=== PATIENT | female | born 1980 | race Caucasian/White ===

== ENCOUNTER → 2018-01-02 09:11 | Outpatient (CLI) | payer OTHER, SELFPAY ==
[2018-01-02 10:19] LABS: Anion Gap 7 (5-15); BUN 13 mg/dL (7-18); BUN/Creat Ratio 18.4 RATIO (10-20); Calcium,Total 8.7 mg/dL (8.5-10.1); Chloride 104 mmol/L (98-107); Cholesterol 206 mg/dL (200); Creatinine, Serum 0.71 mg/dL (0.55-1.02); EST Glomerular Filtration Rate 99 mL/min (>60); Est Glom Filt Rate - Afr Amer 120 mL/min (>60); Glucose 84 mg/dL (74-106); High Density Lipoprotein 49 mg/dL; Potassium 4.1 mmol/L (3.5-5.1); Sodium Level 136 mmol/L (136-145); Thyroid Stim Hormone (TSH) 1.63 uIU/mL (0.358-3.74); Triglycerides 184 mg/dL; Very Low Density Lipoprotein 37 mg/dL (5-40)
== END ==
PROVIDERS: Family Provider Family Medicine; PCP Family Medicine; Referring Provider Family Medicine; Visit Provider Family Medicine
DX: Z00.00 Encounter for general adult medical examination without abnormal findings (principal)
CPT/HCPCS: 36415; 80048; 80061; 82306; 84443

== ENCOUNTER → 2018-09-27 | Outpatient (CLI) | payer OTHER, SELFPAY ==
[2018-09-27 17:28] LABS: Absolute Lymphocyte Count 2.28 X10^3/uL (0.83-4.51); Absolute Neutrophil Count 3.9 X10^3/uL (2.0-7.7); Basophil# 0.04 X10^3/uL; Basophil% 0.6 % (0-1); Eosinophils% 1.4 % (0-5); Hematocrit 36.9 % (37-47); Hemoglobin 12.3 g/dL (12.0-15.0); Lymphocyte # 2.28 X10^3/ul (4.0); Lymphocyte % 32.2 % (19-41); Mean Corp Hgb Conc 33.3 g/dL (32-36); Mean Corpuscular Hgb 30.9 pg (27.0-32.0); Mean Corpuscular Volume 92.7 fL (81-99); Mean Platelet Vol. 10.5 fl (6.2-12.0); Monocyte# 0.78 X10^3/uL; NRBC Flagged by Analyzer 0 % (0-5); Neutrophil # 3.85 X10^3/uL (2.7-7.7); Neutrophil % 54.5 % (47-70); Platelet Count 272 K/mm3 (150-450); RBC Distribution Width CV 12.2 % (11.6-14.6); RBC Distribution Width SD 42.2 fl (35.1-43.9); Red Blood Count 3.98 M/mm3 (4.2-5.4); White Blood Count 7.1 K/mm3 (4.4-11.0)
[2018-09-27 17:51] LABS: Anion Gap 11 (5-15); BUN 10 mg/dL (7-18); BUN/Creat Ratio 16.1 RATIO (10-20); Calcium,Total 9.1 mg/dL (8.5-10.1); Chloride 105 mmol/L (98-107); Creatinine, Serum 0.62 mg/dL (0.55-1.02); EST Glomerular Filtration Rate 115 mL/min (>60); Est Glom Filt Rate - Afr Amer 140 mL/min (>60); Glucose 92 mg/dL (74-106); Sodium Level 141 mmol/L (136-145); Thyroid Stim Hormone (TSH) 1.63 uIU/mL (0.358-3.74)
== END | disposition home or self-care (01) ==
LOC: MFPLAB 15:46
PROVIDERS: Family Provider Family Medicine; PCP Family Medicine; Referring Provider Family Medicine; Visit Provider Family Medicine
DX: R53.83 Other fatigue (principal); E66.9 Obesity, unspecified
CPT/HCPCS: 36415; 80048; 84443; 85025

== ENCOUNTER → 2019-10-19 08:14 | Outpatient (CLI) | payer OTHER, SELFPAY ==
[2019-03-15 14:58] VITALS: BMI 24.2
--- NOTE | 2019-10-19 08:17 | BI_ITS ---
MAMMOGRAPHY - BILATERAL SCREENING 3-D TOMOSYNTHESIS REASON FOR EXAM: Female, 39 years old. Annual screening mammogram. PERTINENT HISTORY: Family history of breast cancer in mother. TECHNIQUE: 2-D mammograms and 3-D Tomosynthesis of the breast (s) were performed. CAD was performed. COMPARISON: Report of mammograms from 04/09/2016. Films not submitted for comparison. FINDINGS: The breast composition is almost entirely fat. Scattered benign calcifications are seen. No dense spiculated masses or suspicious microcalcifications are identified. No architectural distortion is identified. There is no skin thickening or retraction. There has been no significant change since the prior study. BI/SCREEN MAMM (CAD) W/RUPA BILAT IMPRESSION: No mammographic signs of malignancy. Routine yearly mammograms recommended. ASSESSMENT CATEGORY: BIRADS Category 1: Negative. A letter regarding these results will be sent to the patient by the facility within 30 days. FOLLOW UP RECOMMENDATION: Yearly follow up mammogram recommended. (A) Approximately 10% of breast cancers are not detected by mammography. A normal mammogram should not delay biopsy of a clinically suspicious abnormality. Electronically Signed: Raj Souza MD at 15:45 EDT , Service support ,
== END ==
PROVIDERS: PCP Family Medicine; Referring Provider Nurse Practitioner Family; Visit Provider Nurse Practitioner Family
DX: Z12.31 Encounter for screening mammogram for malignant neoplasm of breast (principal)
CPT/HCPCS: 77063; 77067

== ENCOUNTER → 2019-12-31 09:10 | Outpatient (CLI) | payer OTHER, SELFPAY ==
[2019-03-15 14:58] VITALS: BMI 24.2
[2019-12-31 10:55] LABS: Anion Gap 8 (5-15); BUN 11 mg/dL (7-18); Chloride 109 mmol/L (98-107); Cholesterol 207 mg/dL (200); Creatinine, Serum 0.78 mg/dL (0.55-1.02); EST Glomerular Filtration Rate 87 mL/min (>60); Est Glom Filt Rate - Afr Amer 106 mL/min (>60); Glucose 81 mg/dL (74-106); High Density Lipoprotein 48 mg/dL; Sodium Level 138 mmol/L (136-145); Thyroid Stim Hormone (TSH) 1.42 uIU/mL (0.358-3.74); Triglycerides 215 mg/dL; Very Low Density Lipoprotein 43 mg/dL (5-40)
[2020-01-02 08:22] LABS: Vitamin D,25 Hydroxy 37.3 ng/mL
== END ==
PROVIDERS: PCP Family Medicine; Referring Provider Family Medicine; Visit Provider Family Medicine
DX: E78.5 Hyperlipidemia, unspecified (principal); E55.9 Vitamin D deficiency, unspecified; F43.21 Adjustment disorder with depressed mood
CPT/HCPCS: 36415; 80048; 80061; 82306; 84443

== ENCOUNTER 2020-02-29 14:39 | Outpatient (RCR) | payer OTHER, SELFPAY ==
[2019-03-15 14:58] VITALS: BMI 24.2
== END 2020-03-01 23:59 ==
LOC: EMPH 14:39
PROVIDERS: Visit Provider Family Medicine Geriatric Medicine
DX: Z03.818 Encounter for observation for suspected exposure to other biological agents ruled out (principal)
CPT/HCPCS: 87426

== ENCOUNTER → 2020-04-20 08:56 | Outpatient (CLI) | payer OTHER, SELFPAY ==
[2019-03-15 14:58] VITALS: BMI 24.2
[2020-04-20 10:25] LABS: ALB/GLOB Ratio 0.8 RATIO (0.9-2.4); AST(SGOT) 67 U/L (15-37); Alanine Aminotransfer ALT/SGPT 80 U/L (13-56); Albumin, Serum 3.3 g/dL (3.2-5.0); Alkaline Phosphatase 84 U/L (45-117); Anion Gap 5 (5-15); BUN 9 mg/dL (7-18); BUN/Creat Ratio 13.7 RATIO (10-20); Calcium,Total 8.9 mg/dL (8.5-10.1); Chloride 107 mmol/L (98-107); Cholesterol 230 mg/dL (200); Creatinine, Serum 0.66 mg/dL (0.55-1.02); EST Glomerular Filtration Rate 107 mL/min (>60); Est Glom Filt Rate - Afr Amer 129 mL/min (>60); Globulin 4.4 g/dL (2.2-4.2); Glucose 86 mg/dL (74-106); High Density Lipoprotein 47 mg/dL; Potassium 3.8 mmol/L (3.5-5.1); Protein, Total 7.7 g/dL (6.4-8.2); Sodium Level 139 mmol/L (136-145); Triglycerides 227 mg/dL; Very Low Density Lipoprotein 45 mg/dL (5-40)
== END ==
PROVIDERS: PCP Family Medicine; Referring Provider Family Medicine; Visit Provider Family Medicine
DX: E78.5 Hyperlipidemia, unspecified (principal)
CPT/HCPCS: 36415; 80053; 80061

== ENCOUNTER 2020-06-21 15:09 | Outpatient (RCR) | payer OTHER, SELFPAY ==
[2019-03-15 14:58] VITALS: BMI 24.2
== END 2020-06-29 23:59 ==
LOC: EMPH 15:09
PROVIDERS: Referring Provider Family Medicine Geriatric Medicine; Visit Provider Family Medicine Geriatric Medicine
DX: Z03.818 Encounter for observation for suspected exposure to other biological agents ruled out (principal)
CPT/HCPCS: 87426

== ENCOUNTER → 2020-10-19 09:12 | Outpatient (CLI) | payer OTHER, SELFPAY ==
[2020-10-19 12:23] LABS: ALB/GLOB Ratio 0.8 RATIO (0.9-2.4); AST(SGOT) 213 U/L (15-37); Alanine Aminotransfer ALT/SGPT 123 U/L (13-56); Albumin, Serum 3.5 g/dL (3.2-5.0); Alkaline Phosphatase 84 U/L (45-117); Anion Gap 9 (5-15); BUN 13 mg/dL (7-18); BUN/Creat Ratio 20.9 RATIO (10-20); Calcium,Total 9.3 mg/dL (8.5-10.1); Chloride 105 mmol/L (98-107); Cholesterol 223 mg/dL (200); Creatinine, Serum 0.62 mg/dL (0.55-1.02); EST Glomerular Filtration Rate 114 mL/min (>60); Est Glom Filt Rate - Afr Amer 138 mL/min (>60); Globulin 4.4 g/dL (2.2-4.2); Glucose 95 mg/dL (74-106); High Density Lipoprotein 50 mg/dL; Potassium 3.9 mmol/L (3.5-5.1); Protein, Total 7.9 g/dL (6.4-8.2); Sodium Level 137 mmol/L (136-145); Triglycerides 193 mg/dL; Very Low Density Lipoprotein 39 mg/dL (5-40)
== END ==
PROVIDERS: PCP Family Medicine; Referring Provider Family Medicine; Visit Provider Family Medicine
DX: E78.5 Hyperlipidemia, unspecified (principal)
CPT/HCPCS: 36415; 80053; 80061

== ENCOUNTER 2020-10-25 11:56 | Outpatient (RCR) | payer OTHER, SELFPAY ==
[2019-03-15 14:58] VITALS: BMI 24.2
== END 2020-10-30 23:59 ==
LOC: EMPH 11:56
PROVIDERS: PCP Family Medicine; Referring Provider Family Medicine Geriatric Medicine; Visit Provider Family Medicine Geriatric Medicine
DX: Z03.818 Encounter for observation for suspected exposure to other biological agents ruled out (principal)
CPT/HCPCS: 87426

== ENCOUNTER → 2020-11-19 11:02 | Outpatient (CLI) | payer OTHER, SELFPAY ==
[2020-11-19 12:35] LABS: ALB/GLOB Ratio 0.8 RATIO (0.9-2.4); AST(SGOT) 92 U/L (15-37); Alanine Aminotransfer ALT/SGPT 89 U/L (13-56); Albumin, Serum 3.2 g/dL (3.2-5.0); Alkaline Phosphatase 82 U/L (45-117); Anion Gap 8 (5-15); BUN 13 mg/dL (7-18); Chloride 104 mmol/L (98-107); Creatinine, Serum 0.59 mg/dL (0.55-1.02); EST Glomerular Filtration Rate 121 mL/min (>60); Est Glom Filt Rate - Afr Amer 146 mL/min (>60); GGTP 120 U/L (5-55); Globulin 4.1 g/dL (2.2-4.2); Glucose 146 mg/dL (74-106); Potassium 3.5 mmol/L (3.5-5.1); Protein, Total 7.3 g/dL (6.4-8.2); Sodium Level 138 mmol/L (136-145)
[2020-11-20 08:34] LABS: Hepatitis B Surface Antibody Reactive
[2020-11-21 08:08] LABS: HEPATITIS B SURFACE AG Negative (Negative); Hepatitis A IgM Antibody Negative (Negative); Hepatitis B Core AB IgM Negative (Negative)
[2020-11-21 08:48] LABS: Hep C Antibodies <0.1 s/co ratio (0.0-0.9)
== END ==
PROVIDERS: PCP Family Medicine; Referring Provider Family Medicine; Visit Provider Family Medicine
DX: R74.8 Abnormal levels of other serum enzymes (principal)
CPT/HCPCS: 36415; 80053; 80074; 82977; 86706

== ENCOUNTER → 2020-12-21 08:31 | Outpatient (CLI) | payer OTHER, SELFPAY ==
[2020-12-21 10:46] LABS: ALB/GLOB Ratio 0.8 RATIO (0.9-2.4); AST(SGOT) 102 U/L (15-37); Alanine Aminotransfer ALT/SGPT 100 U/L (13-56); Albumin, Serum 3.4 g/dL (3.2-5.0); Alkaline Phosphatase 86 U/L (45-117); Anion Gap 9 (5-15); BUN 13 mg/dL (7-18); BUN/Creat Ratio 17.9 RATIO (10-20); Calcium,Total 9.3 mg/dL (8.5-10.1); Chloride 106 mmol/L (98-107); Cholesterol 215 mg/dL (200); Creatinine, Serum 0.73 mg/dL (0.55-1.02); EST Glomerular Filtration Rate 95 mL/min (>60); Est Glom Filt Rate - Afr Amer 115 mL/min (>60); GGTP 123 U/L (5-55); Globulin 4.4 g/dL (2.2-4.2); Glucose 102 mg/dL (74-106); High Density Lipoprotein 46 mg/dL; Protein, Total 7.8 g/dL (6.4-8.2); Sodium Level 138 mmol/L (136-145); Triglycerides 212 mg/dL; Very Low Density Lipoprotein 42 mg/dL (5-40)
== END ==
PROVIDERS: PCP Family Medicine; Referring Provider Family Medicine; Visit Provider Family Medicine
DX: E78.5 Hyperlipidemia, unspecified (principal)
CPT/HCPCS: 36415; 80053; 80061; 82977

== ENCOUNTER → 2020-12-31 09:16 | Outpatient (CLI) | payer OTHER, SELFPAY ==
[2020-12-31 10:21] LABS: Erythrocyte Sedimentation Rate 31 mm/hr (0-30)
[2020-12-31 10:58] LABS: CPK Total, Creatine Kinase 65 U/L (26-192); Ferritin 91 ng/mL (8-252)
[2021-01-03 00:07] LABS: Albumin 3.2 g/dL (2.9-4.4); Alpha-1-Globulins 0.4 g/dL (0.0-0.4); Angiotensin Convert Enzyme 23 U/L (14-82); Ceruloplasmin 49.5 mg/dL (19.0-39.0); Gamma Globulin 0.9 g/dL (0.4-1.8); Immunoglobulin A 93 mg/dL (87-352); Immunoglobulin G 896 mg/dL (586-1602); Immunoglobulin M 103 mg/dL (26-217); PROEL- TOTAL PROTEIN 6.9 g/dL (6.0-8.5)
[2021-01-03 15:47] LABS: Anti-Smooth Muscle ABS 4 Units (0-19); EBV Acute VCA IgM < 36.0 U/mL (0.0-35.9); EBV Nuclear Antigen IgG < 18.0 U/mL (0.0-17.9); EBV-VCA IgG 43.7 U/mL (0.0-17.9)
[2021-01-03 15:48] LABS: Copper, Serum or Plasma 214 ug/dL (80-158)
== END ==
PROVIDERS: PCP Family Medicine; Referring Provider Internal Medicine Gastroenterology; Visit Provider Internal Medicine Gastroenterology
DX: K75.9 Inflammatory liver disease, unspecified (principal)
CPT/HCPCS: 36415; 82164; 82390; 82525; 82550; 82728; 82784; 83516; 84165; 85652; 86038; 86141; 86334; 86664; 86665

== ENCOUNTER → 2021-01-03 07:51 | Outpatient (CLI) | payer OTHER, SELFPAY ==
--- NOTE | 2021-01-03 07:53 | US_ITS ---
STUDY: ABDOMINAL ULTRASOUND - RIGHT UPPER QUADRANT REASON FOR VISIT: Female, 40 years old Elevated Liver enzymes TECHNIQUE: Ultrasound evaluation of the right upper quadrant was performed with real-time and static hernández-scale imaging. TECHNICAL QUALITY: Adequate. COMPARISON: None. FINDINGS: Liver: The liver is enlarged and measures 23 cm. There is increased echogenicity consistent with fatty infiltration. The bile ducts are within normal limits. There is hepatic color flow. The direction of portal flow is hepatopetal. There is no demonstrated mass lesion. Gallbladder: Normal distended gallbladder. The gallbladder wall measures 1.8 mm. There is a negative sonographic White''s sign. There is no pericholecystic fluid. There are no gallstones. I suspect a 6 mm x 5 mm x 7 mm gallbladder polyp. Common Bile Duct (C.B.D.): The common bile duct measures 2.9 mm. Pancreas: Normal size of the head, body and tail of the pancreas. There is normal echogenicity of the pancreas. There is no demonstrated pancreatic mass or cyst. Right Kidney: Normal size of the right kidney. The right kidney measures 12.6 cm x 5.8 cm x 4.6 cm. Normal renal cortex. The right cortex measures 1.3 cm. There is no demonstrated renal mass or cyst. There is no right hydronephrosis. US/Abdomen Limited IMPRESSION: There is a 6 mm x 5 mm x 7 mm gallbladder polyp. Hepatomegaly and diffuse fatty infiltration of the liver. Electronically Signed: Jovan aWlls MD at 10:49 EDT , Service support ,
== END ==
PROVIDERS: PCP Family Medicine; Referring Provider Family Medicine; Visit Provider Family Medicine
DX: R74.8 Abnormal levels of other serum enzymes (principal)
CPT/HCPCS: 76705

== ENCOUNTER → 2021-01-09 10:33 | Outpatient (CLI) | payer OTHER, SELFPAY ==
--- NOTE | 2021-01-09 10:36 | BI_ITS ---
MAMMOGRAPHY - BILATERAL SCREENING REASON FOR EXAM: Female, 41 years old. Routine annual screening examination. PERTINENT HISTORY: Mother with breast cancer. TECHNIQUE: Digital bilateral breast rupa (3D mammographic acquisition) in the CC and MLO projections. 2-D mediolateral oblique (MLO) and craniocaudad (CC) views of both breasts were obtained. CAD: Full Field Digital Mammography with Computer Added Detection was performed. COMPARISON: Comparison is made with prior study dated 10/19/2019 and 04/09/2016. FINDINGS: Breast Composition: There are scattered areas of fibroglandular density. There are no dominant masses or suspicious calcifications. No other significant abnormalities are identified. There has been no significant change since the prior study. BI/SCRN MAMM (CAD)W/RUPA BILAT IMPRESSION: Stable bilateral screening mammogram. Yearly follow-up mammogram recommended. (A) ASSESSMENT CATEGORY: BIRADS Category 1: Negative. A letter regarding these results will be sent to the patient by the facility within 30 days. Approximately 10% of breast cancers are not detected by mammography. A normal mammogram should not delay biopsy of a clinically suspicious abnormality. [id number] Electronically Signed: Jovan Walls MD at 12:22 EST , Service support ,
== END ==
PROVIDERS: PCP Family Medicine; Referring Provider Nurse Practitioner Family; Visit Provider Nurse Practitioner Family
DX: Z12.31 Encounter for screening mammogram for malignant neoplasm of breast (principal)
CPT/HCPCS: 77063; 77067

== ENCOUNTER → 2021-01-11 11:05 | Outpatient (CLI) | payer OTHER, SELFPAY ==
[2021-01-11 13:03] LABS: Hemoglobin A1c 6.3 % (3.8-5.6)
== END ==
PROVIDERS: PCP Family Medicine; Referring Provider Internal Medicine Gastroenterology; Visit Provider Internal Medicine Gastroenterology
DX: K75.9 Inflammatory liver disease, unspecified (principal)
CPT/HCPCS: 36415; 83036

== ENCOUNTER → 2021-01-31 12:09 | Outpatient (CLI) | payer OTHER, SELFPAY ==
--- NOTE | 2021-01-31 12:10 | MRI_ITS ---
EXAM: MR ABDOMEN WITHOUT INTRAVENOUS CONTRAST, MRCP PROTOCOL : 1980 CLINICAL INDICATION: hepatitis TECHNIQUE: Multiplanar and multisequence MR images of the abdomen without intravenous contrast obtained with MRCP sequence. Three-dimensional post-processing reconstructions were performed. This report was created using [employer]ones report generation technology. COMPARISON: None. FINDINGS: LOWER THORAX: Unremarkable. No pleural effusion. LIVER: There was enlarged measuring 23.5 cm in cephalocaudad dimension. No space-occupying lesions within the liver. GALLBLADDER AND BILE DUCTS: Unremarkable. No gallstones. No gallbladder distention or wall edema. No intra- or extrahepatic biliary ductal dilation. No choledochal filling defect. PANCREAS: Unremarkable. No focal cystic mass. No pancreatic duct dilation. SPLEEN: Unremarkable. Non-enlarged. ADRENALS: Unremarkable. No nodules. KIDNEYS AND URETERS: Unremarkable. Normal renal size and position. No hydronephrosis. INTRAPERITONEAL SPACE: Unremarkable. No ascites or other fluid collection. VASCULATURE: Unremarkable. Abdominal aorta is non-dilated. LYMPH NODES: No enlarged lymph nodes. MRI/MRCP Abdomen without Contrast IMPRESSION: 1. Hepatomegaly. 2. Normal biliary tree. at 0940 Reported and signed by: Isaiah Quinteros MD Electronically Signed: Isaiah Quinteros MD at 9:39 EST Tel , Service support ,
== END ==
PROVIDERS: PCP Family Medicine; Visit Provider Internal Medicine Gastroenterology
DX: K75.9 Inflammatory liver disease, unspecified (principal)
CPT/HCPCS: 74181

== ENCOUNTER → 2021-02-15 09:51 | Outpatient (CLI) | payer OTHER, SELFPAY ==
--- NOTE | 2021-02-15 09:56 | US_ITS ---
STUDY: ABDOMINAL ULTRASOUND - ELASTOGRAPHY REASON FOR VISIT: Female, 41 years old. COLEMAN. TECHNIQUE: Liver stiffness measurements were obtained on a [employer] RS 85 ultrasound machine using a CA 1-7 probe following the SRU guidelines. 3 measurements were obtained using a 2-D-SWE method. The IQR/M was 19% suggesting a quality data set. TECHNICAL QUALITY: Adequate. COMPARISON: Comparison is made with prior examination dated 01/03/2021. FINDINGS: Liver: Hepatomegaly and fatty infiltration of the liver. Median liver stiffness measured 12 kPa. US/Elastography Parenchyma/Organ IMPRESSION: Liver stiffness measures 12 kPa compatible with F3. Metavir score. Electronically Signed: Jovan Walls MD at 10:36 EST , Service support ,
== END ==
PROVIDERS: PCP Family Medicine; Referring Provider Internal Medicine Gastroenterology; Visit Provider Internal Medicine Gastroenterology
DX: K75.81 Nonalcoholic steatohepatitis (NASH) (principal); K75.9 Inflammatory liver disease, unspecified
CPT/HCPCS: 76981

== ENCOUNTER 2021-02-24 08:07 | Outpatient (RCR) | payer OTHER, SELFPAY | END 2021-03-01 23:59 | LOC: EMPH 08:07 | PROVIDERS: PCP Family Medicine | DX: Z03.818 Encounter for observation for suspected exposure to other biological agents ruled out (principal) | CPT/HCPCS: 87426 ==

== ENCOUNTER 2021-04-03 08:51 | Outpatient (CLI) | payer OTHER, SELFPAY ==
[2021-04-03] VITALS (12 sets, daily range): BP systolic 106–139; BP diastolic 70–92; PULSE 67–81; RESP 12–22; TEMP 36.6; O2SAT 75–100; BMI 33.7
--- NOTE | 2021-04-03 | ASPIGT_PTH ---
PATIENT: ROSALINE FRANCIS LOC: CT U#:[id number] AGE/SX: 41/F ROOM: RE04/03/[address]: Dr. Flavio Mcintosh DO : 1980 BED: DIS: 04/03/2021 SPEC #: [id number] RECD: 04/03/21 12:19 STATUS: ALEXSANDER SHAHID #: [id number] RICK: 04/03/21 00:[address]: Flavio Mcintosh DEPT: SURGICAL PATHOLOGY RECD BY: Bill Guzman ENTERED: 04/03/21 12:29 SP TYPE: ASP RAD YESSENIA DR: Dr. Nate Joshi MD Tissues: Liver, NOS Procedures: PAS with Diastase (control) Trichrome (control) Special Stain Group II PAS Stain (control) Surgery Specimen Level V Retic (control) Iron Stain (control) HEADER OPERATION: CT-guided liver biopsy PRE-OP DIAGNOSIS: COLEMAN TISSUE SUBMITTED: Liver 18-gauge x3 MICROSCOPIC DIAGNOSIS Liver, CT-guided core biopsy: Microvesicular and macrovesicular steatohepatitis. See comment. AM:ion 04/04/2021 COMMENT Sections show microvesicular steatosis with macrovesicular steatosis. The inflammatory process is mostly confined to portal areas with focal lobular involvement but shows involvement of interportal parenchyma. PAS stain with and without diastase does not reveal accumulation of abnormal proteins. Iron stain does not reveal deposition of intraparenchymal iron. Reticulin stain reveals a normal hepatic architecture. Trichrome stain reveals uptake in the portal areas with chicken-wire fibrosis within the hepatic parenchyma. All matched controls are appropriate. The inflammation and fibrosis best fits under grade 2, stage 1 (modified Knodell score) consistent for chronic hepatitis. Clinical correlation is suggested. MICROSCOPIC DESCRIPTION Slides are reviewed. GROSS DESCRIPTION Received in fixative is one container labeled with the patient's name and designated liver. The specimen consists of two elongated cores of mcdaniels tissue measuring 2 cm in length and <0.1 cm in diameter. The specimen is totally submitted in one cassette. / AM:ion 04/03/2021 TC:3 CPT: 97626, 97394 x5
--- NOTE | 2021-04-03 09:03 | CT_ITS ---
PROCEDURE: CT DIRECTED CORE LIVER BIOPSY INDICATION: Female, 41 years old. COLEMAN. PHYSICIAN: Dr. JAMEL Jernigan CONSENT: Written informed consent was obtained having explained the risks, benefits and alternatives in detail with the patient who accepted the risks and agreed to proceed. Laboratory review and clinical assessment was performed. CONSCIOUS SEDATION PROTOCOL: The Drugs used were: 2 mg Versed, IV., and 100 mcg Fentanyl, IV. The sedation time was: 20 minutes. Conscious sedation was started at 9:55 AM and terminated at 10:15 AM. The conscious sedation protocol was independently monitored. RADIATION DOSAGE (If Supplied By Facility): CTDIvol = ( 21 ) mGy, DLP = ( 546.66 ) mGycm Individualized dose optimization techniques were used for this CT. TECHNIQUE: Using CT image guidance with image documentation, a suitable location in the right lobe of the liver was identified. Using an anterior approach, puncture of the liver was uneventful with an 18-gauge core needle system. Three 18-gauge core samples were obtained, and submitted in formalin to the pathologist for further assessment. Followup CT scan revealed no distinct sequelae. CT/Biopsy/Inj or Needle Placement IMPRESSION: 1. CT directed core needle biopsy of the liver, using CT image guidance with image documentation as described. 2. Conscious Sedation protocol utilized with independent monitoring. Electronically Signed: Jovan Walls MD at 10:47 EST ,
[2021-04-03 09:07] LABS: Platelet Count 243 K/mm3 (150-450)
[2021-04-03 09:19] LABS: Prothrombin Time (Protime)PT. 12.9 SECONDS (11.7-14.9)
[2021-04-03 09:20] LABS: Partial Thromboplast Time 32.3 Seconds (24.1-36.2)
[2021-04-03 09:36] LABS: Cholesterol 153 mg/dL (200); High Density Lipoprotein 42 mg/dL; Triglycerides 141 mg/dL; Very Low Density Lipoprotein 28 mg/dL (5-40)
[2021-04-03] MEDS: Midazolam 2 MG/2 ML Syringe IV (09:58)
[2021-04-03] MEDS: Lidocaine 2% (20 ml mdv) 20 ML Vial INFILT (10:00)
[2021-04-03] MEDS: fentaNYL 100 MCG/2 ML Ampul IV ×2 (10:00→10:25)
== END 2021-04-03 23:59 | disposition home or self-care (01) ==
LOC: CT 08:52
PROVIDERS: PCP Family Medicine; Visit Provider Internal Medicine Gastroenterology
DX: K75.81 Nonalcoholic steatohepatitis (NASH) (principal); E11.9 Type 2 diabetes mellitus without complications; E78.00 Pure hypercholesterolemia, unspecified; Z79.899 Other long term (current) drug therapy
CPT/HCPCS: 47000; 36415; 77012; 80061; 85049; 85610; 85730; 88305; 88307; 88313; 99156; J7040

== ENCOUNTER 2021-06-07 08:01 | Outpatient (CLI) | payer OTHER, SELFPAY ==
[2021-06-07 08:33] LABS: Erythrocyte Sedimentation Rate 24 mm/hr (0-30)
[2021-06-07 08:35] LABS: Absolute Lymphocyte Count 2.23 X10^3/uL (0.83-4.51); Absolute Neutrophil Count 3.9 X10^3/uL (2.0-7.7); Basophil# 0.03 X10^3/uL; Basophil% 0.4 % (0-1); Eosinophil# 0.11 X10^3/uL; Eosinophils% 1.6 % (0-5); Hematocrit 36.5 % (37-47); Hemoglobin 12.2 g/dL (12.0-15.0); Lymphocyte # 2.23 X10^3/ul (0.83-4.51); Lymphocyte % 32.1 % (19-41); Mean Corp Hgb Conc 33.4 g/dL (32-36); Mean Corpuscular Hgb 29.8 pg (27.0-32.0); Mean Platelet Vol. 9.7 fl (6.2-12.0); Monocyte# 0.67 X10^3/uL; Monocyte% 9.6 % (0-10); NRBC Flagged by Analyzer 0 % (0-5); Neutrophil # 3.88 X10^3/uL (2.7-7.7); Neutrophil % 55.9 % (47-70); Platelet Count 267 K/mm3 (150-450); RBC Distribution Width CV 13.5 % (11.6-14.6); RBC Distribution Width SD 44.3 fl (35.1-43.9)
[2021-06-07 08:36] LABS: International Normalized Ratio 1.1; Prothrombin Time (Protime)PT. 13.3 SECONDS (11.7-14.9)
[2021-06-07 08:57] LABS: ALB/GLOB Ratio 0.9 RATIO (0.9-2.4); AST(SGOT) 15 U/L (15-37); Alanine Aminotransfer ALT/SGPT 27 U/L (13-56); Albumin, Serum 3.6 g/dL (3.2-5.0); Alkaline Phosphatase 65 U/L (45-117); Anion Gap 4 (5-15); BUN 10 mg/dL (7-18); BUN/Creat Ratio 13.5 RATIO (10-20); Calcium,Total 8.7 mg/dL (8.5-10.1); Chloride 108 mmol/L (98-107); Creatinine, Serum 0.74 mg/dL (0.55-1.02); EST Glomerular Filtration Rate 92 mL/min (>60); Est Glom Filt Rate - Afr Amer 112 mL/min (>60); Globulin 3.8 g/dL (2.2-4.2); Glucose 101 mg/dL (74-106); LDH 159 U/L (84-246); Potassium 3.7 mmol/L (3.5-5.1); Protein, Total 7.4 g/dL (6.4-8.2); Sodium Level 139 mmol/L (136-145)
[2021-06-07 08:59] LABS: Hemoglobin A1c 5.5 % (3.8-5.6)
== END 2021-06-07 23:59 | disposition home or self-care (01) ==
PROVIDERS: PCP Family Medicine; Referring Provider Internal Medicine Gastroenterology; Visit Provider Internal Medicine Gastroenterology
DX: K75.81 Nonalcoholic steatohepatitis (NASH) (principal); E11.9 Type 2 diabetes mellitus without complications
CPT/HCPCS: 36415; 80053; 83036; 83615; 85025; 85610; 85652; 86141

== ENCOUNTER → 2021-08-22 | Outpatient (CLI) | payer OTHER, SELFPAY ==
[2021-08-22 12:14] LABS: Absolute Lymphocyte Count 1.99 X10^3/uL (0.83-4.51); Absolute Neutrophil Count 4.3 X10^3/uL (2.0-7.7); Basophil# 0.03 X10^3/uL; Basophil% 0.4 % (0-1); Eosinophil# 0.08 X10^3/uL; Eosinophils% 1.2 % (0-5); Hematocrit 39.6 % (37-47); Lymphocyte # 1.99 X10^3/ul (0.83-4.51); Lymphocyte % 28.8 % (19-41); Mean Corp Hgb Conc 32.8 g/dL (32-36); Mean Corpuscular Hgb 29.7 pg (27.0-32.0); Mean Corpuscular Volume 90.4 fL (81-99); Mean Platelet Vol. 10.6 fl (6.2-12.0); Monocyte# 0.53 X10^3/uL; Monocyte% 7.7 % (0-10); NRBC Flagged by Analyzer 0 % (0-5); Neutrophil # 4.27 X10^3/uL (2.7-7.7); Neutrophil % 61.6 % (47-70); Platelet Count 267 K/mm3 (150-450); RBC Distribution Width SD 42.8 fl (35.1-43.9); Red Blood Count 4.38 M/mm3 (4.2-5.4); White Blood Count 6.9 K/mm3 (4.4-11.0)
[2021-08-22 12:29] LABS: Hemoglobin A1c 5.6 % (3.8-5.6)
[2021-08-22 12:55] LABS: Vitamin B12 352 pg/mL (211-911)
[2021-08-22 13:01] LABS: Ferritin 22 ng/mL (8-252); Free T3 2.7 pg/mL (2.18-3.98); Iron 80 ug/dL (50-170); Iron Binding Capacity,Total 418 ug/dL (250-450); PERCENT IRON SATURATION 19.1 % (15.0-55.0); T4 Free Direct 0.75 ng/dL (0.76-1.46); Thyroid Stim Hormone (TSH) 0.97 uIU/mL (0.358-3.74)
[2021-08-23 19:13] LABS: Thyroid Peroxidase AB < 8 IU/mL (0-34)
[2021-08-25 07:44] LABS: Vitamin D 1,25-Dihydroxy 62.1 pg/mL (24.8-81.5)
== END | disposition home or self-care (01) ==
LOC: MTLAB 11:08
PROVIDERS: PCP Family Medicine; Referring Provider Nurse Practitioner Adult Health; Visit Provider Nurse Practitioner Adult Health
DX: K75.81 Nonalcoholic steatohepatitis (NASH) (principal); E11.9 Type 2 diabetes mellitus without complications
CPT/HCPCS: 36415; 82533; 82607; 82652; 82728; 83036; 83540; 83550; 84439; 84443; 84481; 85025; 86376

== ENCOUNTER 2021-09-27 09:22 | Outpatient (CLI) | payer OTHER, SELFPAY ==
--- NOTE | 2021-09-27 09:32 | US_ITS ---
STUDY: ABDOMINAL ULTRASOUND - ELASTOGRAPHY REASON FOR VISIT: Female, 41 years old. COLEMAN. TECHNIQUE: Liver stiffness measurements were obtained on a [employer] RS 85 ultrasound machine using a CA 1-7 probe following the SRU guidelines. 3 measurements were obtained using a 2-D-SWE method. The IQR/M was 12% suggesting a quality data set. TECHNICAL QUALITY: Adequate. COMPARISON: Comparison is made with prior study dated 02/15/2021. FINDINGS: Liver: Hepatomegaly and fatty infiltration of the liver. Median liver stiffness measured 7.3 kPa. US/Elastography Parenchyma/Organ IMPRESSION: Liver stiffness measures 7.3 kPa compatible with F2-F3 (Mild to moderate liver fibrosis) Metavir score. Electronically Signed: Jovan Walls MD at 11:09 EDT ,
--- NOTE | 2021-09-27 09:32 | US_ITS ---
STUDY: ABDOMINAL ULTRASOUND - RIGHT UPPER QUADRANT REASON FOR VISIT: Female, 41 years old f/u COLEMAN -- in conjunction w/ elastography TECHNIQUE: Ultrasound evaluation of the right upper quadrant was performed with real-time and static hernández-scale imaging. TECHNICAL QUALITY: Adequate. COMPARISON: Comparison is made with prior study dated 01/03/2021. FINDINGS: Liver: The liver is enlarged and measures 20.3 cm. There is increased echogenicity consistent with fatty infiltration. Focal fatty sparing is seen in the region of the gallbladder fossa. The bile ducts are within normal limits. There is hepatic color flow. The direction of portal flow is hepatopetal. There is no demonstrated mass lesion. Gallbladder: Normal distended gallbladder. The gallbladder wall measures 2.0 mm. There is a negative sonographic White''s sign. There is no pericholecystic fluid. There are no gallstones. 2 small gallbladder polyps are seen. Common Bile Duct (C.B.D.): The common bile duct measures 2.9 mm. Pancreas: Normal size of the head, body and tail of the pancreas. There is normal echogenicity of the pancreas. There is no demonstrated pancreatic mass or cyst. Right Kidney: Normal size of the right kidney. The right kidney measures 11.7 cm x 6.6 x 4.6 cm. Normal renal cortex. The right cortex measures 1.1 cm. There is no demonstrated renal mass or cyst. There is no right hydronephrosis. US/Abdomen Limited IMPRESSION: Hepatomegaly and diffuse fatty infiltration with focal fatty sparing in the region of the gallbladder fossa. Electronically Signed: Jovan Walls MD at 11:08 EDT ,
== END 2021-09-27 23:59 | disposition home or self-care (01) ==
LOC: US 09:23
PROVIDERS: PCP Family Medicine; Referring Provider Nurse Practitioner Adult Health; Visit Provider Nurse Practitioner Adult Health
DX: K75.81 Nonalcoholic steatohepatitis (NASH) (principal)
CPT/HCPCS: 76705; 76981

== ENCOUNTER → 2022-05-20 | Outpatient (CLI) | payer OTHER, SELFPAY ==
--- NOTE | 2022-05-20 09:11 | BI_ITS ---
MAMMOGRAPHY - BILATERAL SCREENING REASON FOR EXAM: Female, 42 years old. Routine annual screening examination. PERTINENT HISTORY: Mother with breast cancer. TECHNIQUE: Digital bilateral breast rupa (3D mammographic acquisition) in the CC and MLO projections. 2-D mediolateral oblique (MLO) and craniocaudad (CC) views of both breasts were obtained. CAD: Full Field Digital Mammography with Computer Added Detection was performed. COMPARISON: Comparison is made with prior study dated January 09, 2021 and October 19, 2019. FINDINGS: Breast Composition: There are scattered areas of fibroglandular density. There are no dominant masses or suspicious calcifications. No other significant abnormalities are identified. There has been no significant change since the prior study. BI/SCRN MAMM (CAD)W/RUPA BILAT IMPRESSION: Stable bilateral screening mammogram. Yearly follow-up mammogram recommended. (A) ASSESSMENT CATEGORY: BIRADS Category 1: Negative. A letter regarding these results will be sent to the patient by the facility within 30 days. Approximately 10% of breast cancers are not detected by mammography. A normal mammogram should not delay biopsy of a clinically suspicious abnormality. [id number] Electronically Signed: Jovan Walls MD at 10:37 EDT ,
== END | disposition home or self-care (01) ==
LOC: OPBI 09:10
PROVIDERS: PCP Family Medicine; Referring Provider Family Medicine; Visit Provider Family Medicine
DX: Z12.31 Encounter for screening mammogram for malignant neoplasm of breast (principal)
CPT/HCPCS: 77063; 77067

== ENCOUNTER → 2022-05-21 | Outpatient (CLI) | payer OTHER, SELFPAY ==
[2022-05-21 10:07] LABS: Absolute Lymphocyte Count 1.72 X10^3/uL (0.83-4.51); Absolute Neutrophil Count 4.2 X10^3/uL (2.0-7.7); Basophil# 0.03 X10^3/uL; Basophil% 0.5 % (0-1); Eosinophil# 0.05 X10^3/uL; Eosinophils% 0.8 % (0-5); Hematocrit 40.8 % (37-47); Hemoglobin 12.7 g/dL (12.0-15.0); Lymphocyte # 1.72 X10^3/ul (0.83-4.51); Lymphocyte % 26.4 % (19-41); Mean Corp Hgb Conc 31.1 g/dL (32-36); Mean Corpuscular Hgb 29.4 pg (27.0-32.0); Mean Corpuscular Volume 94.4 fL (81-99); Mean Platelet Vol. 10.8 fl (6.2-12.0); Monocyte# 0.55 X10^3/uL; Monocyte% 8.4 % (0-10); NRBC Flagged by Analyzer 0 % (0-5); Neutrophil # 4.15 X10^3/uL (2.7-7.7); Neutrophil % 63.6 % (47-70); Platelet Count 268 K/mm3 (150-450); RBC Distribution Width CV 13.1 % (11.6-14.6); Red Blood Count 4.32 M/mm3 (4.2-5.4); White Blood Count 6.5 K/mm3 (4.4-11.0)
[2022-05-21 10:10] LABS: Erythrocyte Sedimentation Rate 7 mm/hr (0-30)
[2022-05-21 10:24] LABS: Hemoglobin A1c 5.4 % (3.8-5.6)
[2022-05-21 10:38] LABS: ALB/GLOB Ratio 1.1 RATIO (0.9-2.4); AST(SGOT) 12 U/L (15-37); Alanine Aminotransfer ALT/SGPT 18 U/L (13-56); Albumin, Serum 3.6 g/dL (3.2-5.0); Alkaline Phosphatase 65 U/L (45-117); Anion Gap 8 (5-15); BUN 12 mg/dL (7-18); BUN/Creat Ratio 17.1 RATIO (10-20); CRP < 2.90 mg/L (0.0-3.0); Chloride 106 mmol/L (98-107); Cholesterol 122 mg/dL (200); EST Glomerular Filtration Rate 98 mL/min (>60); Est Glom Filt Rate - Afr Amer 119 mL/min (>60); Globulin 3.4 g/dL (2.2-4.2); Glucose 92 mg/dL (74-106); High Density Lipoprotein 49 mg/dL; Potassium 3.7 mmol/L (3.5-5.1); Sodium Level 142 mmol/L (136-145); Triglycerides 92 mg/dL; Very Low Density Lipoprotein 18 mg/dL (5-40)
== END | disposition home or self-care (01) ==
LOC: MTLAB 08:26
PROVIDERS: PCP Family Medicine; Referring Provider Nurse Practitioner Adult Health; Visit Provider Nurse Practitioner Adult Health
DX: K75.81 Nonalcoholic steatohepatitis (NASH) (principal)
CPT/HCPCS: 36415; 80053; 80061; 83036; 85025; 85652; 86140

== ENCOUNTER → 2022-05-28 | Outpatient (CLI) | payer OTHER, SELFPAY ==
--- NOTE | 2022-05-28 08:30 | US_ITS ---
STUDY: ABDOMINAL ULTRASOUND - ELASTOGRAPHY REASON FOR VISIT: Female, 42 years old. COLEMAN TECHNIQUE: Liver stiffness measurements were obtained on a [employer] RS 85 ultrasound machine using a CA 1-7 probe following the SRU guidelines. 3 measurements were obtained using a 2-D-SWE method. TheIQR/M was 20 % suggesting a quality data set. TECHNICAL QUALITY: Adequate. COMPARISON: Comparison is made with prior study done earlier in the day. FINDINGS: Liver: There is no demonstrated mass lesion. Median liver stiffness measured 6 kPa. US/Elastography Parenchyma/Organ IMPRESSION: Liver stiffness measures 6 kPa compatible with F2-F3 (Mild to moderate liver fibrosis) Metavir score. Electronically Signed: Jovan Walls MD at 15:49 EDT ,
--- NOTE | 2022-05-28 08:30 | US_ITS ---
STUDY: ABDOMINAL ULTRASOUND - RIGHT UPPER QUADRANT REASON FOR VISIT: Female, 42 years old nafld TECHNIQUE: Ultrasound evaluation of the right upper quadrant was performed with real-time and static hernández-scale imaging. TECHNICAL QUALITY: Adequate. COMPARISON: Comparison is made with prior study dated September 27, 2021. FINDINGS: Liver: The liver measures 16.1 cm. There is normal echogenicity of the liver. The bile ducts are within normal limits. There is hepatic color flow. The direction of portal flow is hepatopetal. There is a 1.2 cm x 1.5 cm x 1.5 cm echogenic nodule in the right lobe of the liver adjacent to the gallbladder fossa. This most likely represents a small hemangioma. Gallbladder: Normal distended gallbladder. The gallbladder wall measures 2 mm. There is a negative sonographic White''s sign. There is no pericholecystic fluid. There are no gallstones. Once again, 2, gallbladder polyps is seen adherent to the gallbladder wall. Common Bile Duct (C.B.D.): The common bile duct measures 3 mm. Pancreas: Normal size of the head, body and tail of the pancreas. There is normal echogenicity of the pancreas. There is no demonstrated pancreatic mass or cyst. Right Kidney: Normal size of the right kidney. The right kidney measures 10.5 cm x 5.4 cm x 4.6 cm. Normal renal cortex. The right cortex measures 1.8 cm. There is no demonstrated renal mass or cyst. There is no right hydronephrosis. US/Abdomen Limited IMPRESSION: Findings suggestive of a small hemangioma in the right lobe of the liver adjacent to the gallbladder fossa. Stable gallbladder polyps. Electronically Signed: Jovan Walls MD at 15:48 EDT ,
== END | disposition home or self-care (01) ==
LOC: US 08:25
PROVIDERS: PCP Family Medicine; Referring Provider Nurse Practitioner Adult Health; Visit Provider Nurse Practitioner Adult Health
DX: K75.81 Nonalcoholic steatohepatitis (NASH) (principal)
CPT/HCPCS: 76705; 76981

== ENCOUNTER → 2022-08-19 | Outpatient (CLI) | payer OTHER, SELFPAY | END | disposition home or self-care (01) | LOC: LAB 14:34 → LABSPEC 08-20 06:48 | PROVIDERS: PCP Family Medicine; Visit Provider Emergency Medicine | DX: J02.9 Acute pharyngitis, unspecified (principal) | CPT/HCPCS: 87880 ==

== ENCOUNTER → 2022-12-03 | Outpatient (CLI) | payer OTHER, SELFPAY ==
--- NOTE | 2022-12-03 08:17 | US_ITS ---
STUDY: ABDOMINAL ULTRASOUND - RIGHT UPPER QUADRANT; ELASTOGRAPHY REASON FOR VISIT: Female, 42 years old. COLEMAN gallbladder polyp. TECHNIQUE: Ultrasound evaluation of the right upper quadrant was performed with real-time and static hernández-scale imaging. Point quantification shear wave elastography was performed ([employer]). TECHNICAL QUALITY: Adequate. COMPARISON: Comparison is made with prior study dated May 28, 2022 and September 27, 2021. FINDINGS: Liver: The liver is enlarged and measures 17.8 cm. There is increased echogenicity consistent with fatty infiltration. The bile ducts are within normal limits. There is hepatic color flow. The direction of portal flow is hepatopetal. Stable 2.1 cm x 2 cm x 1.7 cm hyperechoic nodule adjacent to the gallbladder fossa. This most likely represents a small hemangioma. Median liver stiffness measured 7.7 kPa. Gallbladder: Normal distended gallbladder. The gallbladder wall measures 2. mm. There is a negative sonographic White''s sign. There is no pericholecystic fluid. There are no gallstones. 2 gallbladder polyps are seen adherent to the gallbladder wall. The larger polyp measures 6 mm x 3 mm. Common Bile Duct (C.B.D.): The common bile duct measures 3.5 mm. Pancreas: There is normal echogenicity of the visualized pancreas. There is no demonstrated pancreatic mass or cyst. Right Kidney: Normal size of the right kidney. The right kidney measures 11.3 cm x 5.3 cm x 4.4 cm. Normal renal cortex. The right cortex measures 1.4 cm. There is no demonstrated renal mass or cyst. There is no right hydronephrosis. US/ABD Limited w/ Elastography IMPRESSION: 1. Liver stiffness measures 7.7 kPa compatible with F2-F3 (Mild to moderate liver fibrosis) Metavir score. 2. Mild hepatomegaly and fatty infiltration the liver. 3. Stable small hemangioma in the right lobe of the liver adjacent to the gallbladder lumen. Electronically Signed: Jovan Walls MD at 8:55 EDT ,
== END | disposition home or self-care (01) ==
PROVIDERS: PCP Family Medicine; Referring Provider Internal Medicine Gastroenterology; Visit Provider Internal Medicine Gastroenterology
DX: K75.81 Nonalcoholic steatohepatitis (NASH) (principal)
CPT/HCPCS: 91200; 76705; 76981

== ENCOUNTER → 2022-12-25 | Outpatient (CLI) | payer OTHER, SELFPAY ==
[2022-12-25 08:35] LABS: Absolute Lymphocyte Count 2.27 X10^3/uL (0.83-4.51); Absolute Neutrophil Count 4.5 X10^3/uL (2.0-7.7); Basophil# 0.07 X10^3/uL; Basophil% 0.9 % (0-1); Eosinophil# 0.11 X10^3/uL; Eosinophils% 1.5 % (0-5); Hematocrit 39.9 % (37-47); Hemoglobin 12.9 g/dL (12.0-15.0); Lymphocyte # 2.27 X10^3/ul (0.83-4.51); Lymphocyte % 30.1 % (19-41); Mean Corp Hgb Conc 32.3 g/dL (32-36); Mean Corpuscular Hgb 29.7 pg (27.0-32.0); Mean Corpuscular Volume 91.7 fL (81-99); Mean Platelet Vol. 10.3 fl (6.2-12.0); Monocyte# 0.55 X10^3/uL; Monocyte% 7.3 % (0-10); NRBC Flagged by Analyzer 0 % (0-5); Neutrophil % 59.8 % (47-70); Platelet Count 275 K/mm3 (150-450); RBC Distribution Width CV 12.3 % (11.6-14.6); RBC Distribution Width SD 41.1 fl (35.1-43.9); Red Blood Count 4.35 M/mm3 (4.2-5.4); White Blood Count 7.5 K/mm3 (4.4-11.0)
[2022-12-25 09:00] LABS: ALB/GLOB Ratio 0.8 RATIO (0.9-2.4); AST(SGOT) 7 U/L (15-37); Alanine Aminotransfer ALT/SGPT 18 U/L (13-56); Albumin, Serum 3.3 g/dL (3.2-5.0); Alkaline Phosphatase 43 U/L (45-117); Anion Gap 5 (5-15); BUN 14 mg/dL (7-18); BUN/Creat Ratio 17.3 RATIO (10-20); Calcium,Total 8.7 mg/dL (8.5-10.1); Chloride 109 mmol/L (98-107); Creatinine, Serum 0.81 mg/dL (0.55-1.02); EST Glomerular Filtration Rate 83 mL/min (>60); Est Glom Filt Rate - Afr Amer 100 mL/min (>60); Glucose 89 mg/dL (74-106); Potassium 3.8 mmol/L (3.5-5.1); Protein, Total 7.3 g/dL (6.4-8.2); Sodium Level 140 mmol/L (136-145)
[2022-12-26 11:30] LABS: Cholesterol 211 mg/dL (200); High Density Lipoprotein 50 mg/dL; Triglycerides 169 mg/dL; Very Low Density Lipoprotein 34 mg/dL (5-40)
== END | disposition home or self-care (01) ==
LOC: LAB 07:43
PROVIDERS: PCP Family Medicine; Referring Provider Internal Medicine Gastroenterology; Visit Provider Internal Medicine Gastroenterology
DX: E78.5 Hyperlipidemia, unspecified (principal); K75.81 Nonalcoholic steatohepatitis (NASH)
CPT/HCPCS: 36415; 80053; 80061; 85025

== ENCOUNTER → 2023-07-24 | Outpatient (CLI) | payer OTHER, SELFPAY ==
--- NOTE | 2023-07-24 07:56 | US_ITS ---
STUDY: ABDOMINAL ULTRASOUND - RIGHT UPPER QUADRANT; ELASTOGRAPHY REASON FOR VISIT: Female, 43 years old. Fatty infiltration of the liver. TECHNIQUE: Ultrasound evaluation of the right upper quadrant was performed with real-time and static hernández-scale imaging. Point quantification shear wave elastography was performed ([employer]). TECHNICAL QUALITY: Adequate. COMPARISON: Comparison is made with prior study dated December 03, 2022. FINDINGS: Liver: The liver is enlarged and measures 19.6 cm. There is increased echogenicity consistent with fatty infiltration. The bile ducts are within normal limits. There is hepatic color flow. The direction of portal flow is hepatopetal. There is no demonstrated mass lesion. Median liver stiffness measured 4.7 kPa. Gallbladder: Normal distended gallbladder. The gallbladder wall measures 2.1 mm. There is a negative sonographic White''s sign. There is no pericholecystic fluid. There are no gallstones. 2 small gallbladder polyps are once again seen. Common Bile Duct (C.B.D.): The common bile duct measures 4.0 mm. Pancreas: There is normal echogenicity of the visualized pancreas. There is no demonstrated pancreatic mass or cyst. Right Kidney: Normal size of the right kidney. The right kidney measures 12.2 cm x 5.9 cm x 4.5 cm. Normal renal cortex. The right cortex measures 1.8 cm. There is no demonstrated renal mass or cyst. There is no right hydronephrosis. US/ABD Limited w/ Elastography IMPRESSION: 1. Liver stiffness measures 4.7 kPa compatible with F0-F1 (Normal to mild liver fibrosis) Metavir score. Electronically Signed: Jovan Walls MD at 14:55 EDT ,
== END | disposition home or self-care (01) ==
LOC: US 07:53
PROVIDERS: PCP Family Medicine; Referring Provider Internal Medicine Gastroenterology; Visit Provider Internal Medicine Gastroenterology
DX: K75.81 Nonalcoholic steatohepatitis (NASH) (principal)
CPT/HCPCS: 76705; 76981

== ENCOUNTER → 2024-02-19 | Outpatient (CLI) | payer OTHER, SELFPAY ==
--- NOTE | 2024-02-19 08:19 | BI_ITS ---
MAMMOGRAPHY - BILATERAL SCREENING REASON FOR EXAM: Female, 44 years old. Routine annual screening examination. PERTINENT HISTORY: Mother with breast cancer. TECHNIQUE: Digital bilateral breast rupa (3D mammographic acquisition) in the CC and MLO projections. 2-D mediolateral oblique (MLO) and craniocaudad (CC) views of both breasts were obtained. CAD: Full Field Digital Mammography with Computer Added Detection was performed. COMPARISON: Comparison is made with prior study May 20, 2022 and January 09, 2021. FINDINGS: Breast Composition: There are scattered areas of fibroglandular density. There are no dominant masses or suspicious calcifications. No other significant abnormalities are identified. There has been no significant change since the prior study. BI/SCRN MAMM (CAD)W/RUPA BILAT IMPRESSION: Stable bilateral screening mammogram. Yearly follow-up mammogram recommended. (A) ASSESSMENT CATEGORY: BIRADS Category 1: Negative. A letter regarding these results will be sent to the patient by the facility within 30 days. Approximately 10% of breast cancers are not detected by mammography. A normal mammogram should not delay biopsy of a clinically suspicious abnormality. [id number] Electronically Signed: Jovan Walls MD at 9:16 EST ,
== END | disposition home or self-care (01) ==
LOC: OPBI 08:17
PROVIDERS: PCP Family Medicine; Referring Provider Obstetrics & Gynecology; Visit Provider Obstetrics & Gynecology
DX: Z12.31 Encounter for screening mammogram for malignant neoplasm of breast (principal)
CPT/HCPCS: 77063; 77067